=== PATIENT | male | born 1965 | race Caucasian/White ===

== ENCOUNTER 2016-09-10 17:55 | Emergency (ER) | payer OTHER ==
[2016-09-10 18:21] LABS: URINE BILIRUBIN 1+ (NEGATIVE); URINE BLOOD NEGATIVE (NEGATIVE); URINE GLUCOSE (UA) NORMAL (NORMAL); URINE KETONE NEGATIVE (NEGATIVE); URINE LEUKOCYTE ESTERASE TRACE (NEGATIVE); URINE NITRATE NEGATIVE (NEGATIVE); URINE PROTEIN TRACE (NEGATIVE)
[2016-09-10 18:38] LABS: BASO % 0.4 % (0.2-1.2); EOS # 0.2 10_X3_uL (0.0-0.5); EOS % 1.9 % (0.8-7.0); GRAN # 6.2 10_X3_uL (1.8-5.4); GRAN % 73.8 % (34.0-67.9); HEMATOCRIT 44.3 % (40-51); HEMOGLOBIN 15.1 g/dL (13.7-17.5); LYMPH # 1.4 10_X3_uL (1.3-3.6); LYMPH % 16.6 % (21.8-53.1); MEAN CORPUSCULAR HEMOGLOBIN 29.4 pg (27.0-33.0); MEAN CORPUSCULAR HGB CONC 34.1 g/dL (32.0-36.0); MEAN CORPUSCULAR VOLUME 86.2 fL (79-92); MEAN PLATELET VOLUME 10.5 fl (7.5-11.5); MONO # 0.6 10_X3_uL (0.3-0.8); MONO % 7.3 % (5.3-12.2); PLATELET COUNT 147 x10_3/uL (163-337); RED BLOOD COUNT 5.14 x10_6/uL (4.6-6.1); RED CELL DISTRIBUTION WIDTH 14.3 % (11.6-14.4); WHITE BLOOD COUNT 8.4 x10_3/uL (4.2-9.1)
[2016-09-10 18:43] LABS: URINE MUCUS 1+; URINE WBC 0-5 /[HPF] (0-3)
[2016-09-10 18:54] LABS: ALBUMIN 3.9 gm/dL (3.4-5.0); ALKALINE PHOSPHATASE 73 U/L (50-136); ALT/SGPT 10 U/L (7.53-40.17); AMYLASE 29 U/L (15.62-74.58); AST/SGOT 18 U/L (6.66-35.34); BLOOD UREA NITROGEN 19 mg/dL (7-18); CALCIUM 8.3 mg/dL (8.7-10.7); CARBON DIOXIDE 18 mmol/L (21-32); CREATININE 0.7 mg/dL (0.6-1.3); GLUCOSE,RANDOM 104 mg/dL (70-99); LIPASE 15 U/L (6.75-60.75); POTASSIUM 3.6 mmol/L (3.5-5.1); SODIUM 136 mmol/L (136-145); TOTAL PROTEIN 6.3 gm/dL (6.4-8.2)
== END 2016-09-10 20:11 | disposition left against medical advice (07) ==
LOC: ER 17:55
PROVIDERS: General Practice
DX: M54.5 Low back pain (principal); R11.2 Nausea with vomiting, unspecified; R10.9 Unspecified abdominal pain; G89.29 Other chronic pain; F17.210 Nicotine dependence, cigarettes, uncomplicated; Z79.1 Long term (current) use of non-steroidal anti-inflammatories (NSAID); Z79.899 Other long term (current) drug therapy
CPT/HCPCS: 36415; 80053; 81001; 82150; 83690; 85025; 99283